=== PATIENT | female | born 1955 | race Caucasian/White ===

== ENCOUNTER → 2017-10-09 | Outpatient (CLI) | payer OTHER ==
--- NOTE | 2017-10-09 11:18 | Diagnostic Imaging Report ---
PROCEDURE: Frontal and lateral views of the chest. COMPARISON: None. INDICATIONS: SHORTNESS OF BREATH, BRONCHITIS FINDINGS: Lines/tubes: None. Lungs: 1.2 cm nodular density projects over the posterior left fifth rib. No focal consolidation or parenchymal mass. Pleura: There is no pleural effusion or pneumothorax. Heart and mediastinum: The heart and the mediastinum are normal. Atherosclerotic calcifications. Bones: No acute bony abnormality. Degenerative changes of the thoracic spine. IMPRESSION: Density in the left apex may represent a nodule. CT of the chest may provide additional information for further characterization. Dictated by: Giacomo Benavidez M.D. on 10/09/2017 at 11:28 Electronically approved by: Giacomo Benavidez M.D. on 10/09/2017 at 11:28
== END ==
LOC: RAD 10:03
PROVIDERS: ATTEND Family Medicine
DX: J40 Bronchitis, not specified as acute or chronic (principal)
CPT/HCPCS: 71046